=== PATIENT | male | born 1965 | race Caucasian/White ===

== ENCOUNTER 2016-03-19 12:16 | Emergency (ER) | payer BC ==
[~2016-03-19] VITALS: Ht 177.8 cm; Wt 118.7 kg
[2016-03-19] MEDS ORDERED: HTN MED (14:27)
[2016-03-19] MEDS ORDERED: LO-DOSE ASPIRIN81 M2 PO (14:27)
[2016-03-19] MEDS ORDERED: NORCO 5/3251 TABLET PO (15:59)
[2016-03-19 16:06] VITALS: BP 146/88
== END 2016-03-19 16:07 | disposition home or self-care (01) ==
LOC: EME 12:16
PROC: 0HQ0XZZ Repair Scalp Skin, External Approach (ICD-10-PCS; principal; 2016-03-19)
DX: S06.0X0A Concussion without loss of consciousness, initial encounter (principal); S09.90XA Unspecified injury of head, initial encounter; S01.01XA Laceration without foreign body of scalp, initial encounter; W20.8XXA Other cause of strike by thrown, projected or falling object, initial encounter; Z87.442 Personal history of urinary calculi; Z87.891 Personal history of nicotine dependence
CPT/HCPCS: 70450; 99281; 99284